=== PATIENT | female | born 1985 | race African-American/Black ===

== ENCOUNTER 2018-10-12 16:11 | Emergency (ER) | payer MEDICAID ==
[~2018-10-12] VITALS: Ht 170.2 cm; Wt 57.0 kg
[~2018-10-12 16:11] MED LIST: ALBU6.7H9; FERR325T23
[2018-10-12] MEDS ORDERED: KETOROLAC 60MG/2ML VIAL IM ONE (22:15)
[2018-10-12] MEDS ORDERED: HYDROCODONE/ACETAMINOPHEN 5/325MG TABLET PO ONE (22:15)
[2018-10-12 23:34] LABS: CLARITY URINE CLEAR (CLEAR); COLOR URINE YELLOW (YELLOW); KETONES URINE 3+ (NEGATIVE); LEUKOCYTE ESTERASE URINE NEGATIVE (NEGATIVE); NITRITE URINE NEGATIVE (NEGATIVE); OCCULT BLOOD URINE NEGATIVE (NEGATIVE); PROTEIN URINE TRACE (NEGATIVE); SPECIFIC GRAVITY URINE 1.022 (1.005-1.030)
[2018-10-12 23:56] VITALS: BP 105/76
== END 2018-10-13 00:10 | disposition home or self-care (01) ==
LOC: ER 16:11
DX: J06.9 Acute upper respiratory infection, unspecified (principal); J40 Bronchitis, not specified as acute or chronic
CPT/HCPCS: 71045; 81003; 81025; 96372; 99284; J1885

== ENCOUNTER 2024-04-01 00:49 | Emergency (ER) | payer MEDICAID, OTHER ==
[~2024-04-01] VITALS: Ht 175.3 cm; Wt 61.0 kg
[~2024-04-01 00:49] MED LIST changes: +ALBU6.7H3; -ALBU6.7H9
[2024-04-01 00:53] VITALS: O2SAT 98
[2024-04-01 01:29] VITALS: TEMP 99.1; O2SAT 99
[2024-04-01 03:52] VITALS: BP 113/88; PULSE 91; RESP 18
[2024-04-01] MEDS: KETOROLAC 30MG/ML VIAL IM NR (03:52)
[2024-04-01] MEDS: METOCLOPRAMIDE HCL 10MG TABLET PO NR (03:52)
[2024-04-01] MEDS: METOCLOPRAMIDE HCL 10MG TABLET PO ONE (03:53)
[2024-04-01] MEDS: KETOROLAC 30MG/ML VIAL IM ONE (03:53)
== END 2024-04-01 04:35 | disposition home or self-care (01) ==
LOC: ER 00:49
DX: B34.9 Viral infection, unspecified (principal); F12.90 Cannabis use, unspecified, uncomplicated
CPT/HCPCS: 99283; 71045; 96372; J1885; J8597